=== PATIENT | male | born 1990 | race Caucasian/White ===

== ENCOUNTER 2018-08-19 12:11 | Emergency (ER) | payer SELFPAY ==
--- NOTE | 2018-08-19 12:56 | EDPHYS ---
Physician Documentation [facility] Name: Chris Gomez Age: 27 yrs Sex: Male : 1990 Arrival Date: 08/19/2018 Time: 12:15 Bed Treatment Private MD: None, None ED Physician Emmanuel Barrios HPI: 08/19 12:52 This 27 yrs old Male presents to ER via Ambulatory with complaints of rn Toothache. 12:52 The patient presents with pain. The problem is located in the right upper last molar. rn Onset: The symptoms/episode began/occurred at an unknown time. Duration: The symptoms are intermittent. Modifying factors: The symptoms are alleviated by nothing, the symptoms are aggravated by chewing, cold fluids, food, talking. Severity of symptoms: At their worst the symptoms were moderate, in the emergency department the symptoms are unchanged. The patient has experienced similar episodes in the past. Reports "bad teeth", recently got worse, right upper molar with pain, no swelling/fever, no trauma. Is planning on seeing dentist this . . Historical: - Allergies: 12:33 NKA; iw - Home Meds: 12:33 penicillin [Active]; iw - PMHx: 12:33 None; iw - PSHx: 12:33 None; iw - Immunization history:: Adult Immunizations unknown. - Ebola Screening: : Patient negative for fever greater than or equal to 101.5 degrees Fahrenheit, and additional compatible Ebola Virus Disease symptoms Patient denies exposure to infectious person Patient denies travel to an Ebola-affected area in the 21 days before illness onset No symptoms or risks identified at this time. - Social history:: Smoking status: . - Family history:: not pertinent. - Hospitalizations: : No recent hospitalization is reported. ROS: 12:52 Constitutional: Negative for fever, chills, and weight loss, ENT: + dental pain rn Exam: 12:52 Constitutional: This is a well developed, well nourished patient who is awake, alert, rn and in no acute distress. Head/Face: Normocephalic, atraumatic. ENT: + cavity superior aspect of right upper molar, no abscess, no drainage, no swelling. Vital Signs: 12:34 BP 135 / 90; Pulse 99; Resp 16; Temp 97.9; Pulse Ox 99% on R/A; Weight 81.65 kg; Height iw 5 ft. 7 in. (170.18 cm); Pain 10/10; 12:34 Body Mass Index 28.19 (81.65 kg, 170.18 cm) MDM: 12:46 Patient medically screened. rn 12:52 Differential diagnosis: dental caries. Data reviewed: vital signs, nurses notes, and as rn a result, I will discharge patient. Counseling: I had a detailed discussion with the patient and/or guardian regarding: the historical points, exam findings, and any diagnostic results supporting the discharge/admit diagnosis, the need for outpatient follow up, to return to the emergency department if symptoms worsen or persist or if there are any questions or concerns that arise at home. Response to treatment: There is no appreciated change of the patient's symptoms at this time, and as a result, I will discharge patient. Special discussion: I discussed with the patient/guardian in detail that at this point there is no indication for admission to the hospital. It is understood, however, that if the symptoms persist or worsen the patient needs to return immediately for re-evaluation. Based on the history and exam findings, there is no indication for further emergent testing or inpatient evaluation. I discussed with the patient/guardian the need to see a dentist for further evaluation of the symptoms. Administered Medications: No medications were administered Disposition: 08/19/18 12:56 Discharged to Home. Impression: Dental caries. - Condition is Stable. - Discharge Instructions: Dental Pain. - Prescriptions for Clindamycin HCl 300 mg Oral Capsule - take 1 capsule by ORAL route every 6 hours for 10 days; 40 capsule. Ultram 50 mg Oral Tablet - take 1 tablet by ORAL route every 6 hours As needed; 15 tablet. - Medication Reconciliation Form, Thank You Letter, Antibiotic Education, Prescription Opioid Use form. - Follow up: Private Physician; When: As needed; Reason: Recheck today's complaints, Re-evaluation by your physician. - Problem is an ongoing problem. - Symptoms have improved. Signatures: Meredith Che RN RN Emmanuel Barrios MD MD oxide furnace tender: (The following items were deleted from the chart) 13:01 12:56 08/19/2018 12:56 Discharged to Home. Impression: Dental caries. Condition is iw Stable. Forms are Medication Reconciliation Form, Thank You Letter, Antibiotic Education, Prescription Opioid Use. Follow up: Private Physician; When: As needed; Reason: Recheck today's complaints, Re-evaluation by your physician. Problem is an ongoing problem. Symptoms have improved. rn
--- NOTE | 2018-08-19 12:56 | ER ---
Nurse's Notes [facility] Name: Chris Gomez Age: 27 yrs Sex: Male : 1990 Arrival Date: 08/19/2018 Time: 12:15 Bed Treatment Private MD: None, None Diagnosis: Dental caries Presentation: 08/19 12:32 Presenting complaint: Patient states: bad toothache on right side X 5 days. Transition iw of care: patient was not received from another setting of care. Onset of symptoms was August 14, 2018. Risk Assessment: Do you want to hurt yourself or someone else? Patient reports no desire to harm self or others. Initial Sepsis Screen: Does the patient meet any 2 criteria? No. Patient's initial sepsis screen is negative. Does the patient have a suspected source of infection? No. Patient's initial sepsis screen is negative. Care prior to arrival: None. 12:32 Method Of Arrival: Ambulatory iw 12:32 Acuity: OCTAVIO 4 iw 12:33 Note was seen at [place] [facility] for same problem, put on abx, not getting better. iw Historical: - Allergies: 12:33 NKA; iw - Home Meds: 12:33 penicillin [Active]; iw - PMHx: 12:33 None; iw - PSHx: 12:33 None; iw - Immunization history:: Adult Immunizations unknown. - Ebola Screening: : Patient negative for fever greater than or equal to 101.5 degrees Fahrenheit, and additional compatible Ebola Virus Disease symptoms Patient denies exposure to infectious person Patient denies travel to an Ebola-affected area in the 21 days before illness onset No symptoms or risks identified at this time. - Social history:: Smoking status: . - Family history:: not pertinent. - Hospitalizations: : No recent hospitalization is reported. Screenin:50 Abuse screen: Denies threats or abuse. Denies injuries from another. Nutritional iw screening: No deficits noted. Tuberculosis screening: No symptoms or risk factors identified. Fall Risk None identified. Assessment: 12:49 General: Appears in no apparent distress. Behavior is calm, cooperative. Pain: iw Complains of pain in right cheek and right jaw. Neuro: Level of Consciousness is awake, alert, obeys commands, Oriented to person, place, time, situation, Moves all extremities. Full function. Cardiovascular: Patient's skin is warm and dry. Respiratory: Respiratory effort is even, unlabored, Respiratory pattern is regular, symmetrical. EENT: Reports pain in mouth. Derm: Skin is intact, is healthy with good turgor. Musculoskeletal: Range of motion: intact in all extremities. Vital Signs: 12:34 BP 135 / 90; Pulse 99; Resp 16; Temp 97.9; Pulse Ox 99% on R/A; Weight 81.65 kg; Height iw 5 ft. 7 in. (170.18 cm); Pain 10/10; 12:34 Body Mass Index 28.19 (81.65 kg, 170.18 cm) iw ED Course: 12:15 Patient arrived in ED. mr 12:15 None, None is Private Physician. mr 12:33 Triage completed. iw 12:34 Arm band placed on. iw 12:46 Emmanuel Barrios MD is Attending Physician. rn 12:49 Meredith Che RN is Primary Nurse. iw 12:50 Patient has correct armband on for positive identification. iw 13:00 No provider procedures requiring assistance completed. Patient did not have IV access iw during this emergency room visit. Administered Medications: No medications were administered Outcome: 12:56 Discharge ordered by . rn 13:00 Discharged to home ambulatory. iw 13:00 Condition: good 13:00 Discharge instructions given to patient, Instructed on discharge instructions, follow up and referral plans. medication usage, Demonstrated understanding of instructions, follow-up care, medications, Prescriptions given X 2. 13:01 Patient left the ED. iw Signatures: Jeanie Willoughby mr Meredith Che, RN RN iw Emmanuel Barrios MD MD rn
== END 2018-08-19 13:01 | disposition home or self-care (01) ==
LOC: ER 12:11
DX: K02.9 Dental caries, unspecified (principal); Z88.0 Allergy status to penicillin
CPT/HCPCS: 99282